=== PATIENT | female | born 1980 | race Caucasian/White ===

== ENCOUNTER → 2018-08-31 | Outpatient (CLI) | payer OTHER ==
[~2018-08-31] MED LIST: ALPR1 PO; BUSP10 PO; CRUTCH2 USE; CYCL10 PO; ESCI20 PO; FLUO20 PO; GABA300 PO; HYDACE5 PO; HYDHCL25 PO; IBUP800 PO; LAMO100 PO; LEVFLO250 PO; Naprosyn500 MG PO; OMEP20ER; PRAV20; SAPHRIS; SERT100 PO
== END | disposition home or self-care (01) ==
LOC: LAB EV 14:59 → LAB SHORT 14:59
DX: N39.0 Urinary tract infection, site not specified (principal)
CPT/HCPCS: 87086

== ENCOUNTER 2023-11-23 18:51 | Observation (INO) | payer BC ==
[~2023-11-23] VITALS: Ht 160 cm; Wt 81.7 kg
[2023-11-23 19:38] LABS: Source, Urine Clean Catch
[2023-11-23 19:42] LABS: Appearance, Urine Clear (Clear); Bilirubin, Urine Neg (Neg); Blood, Urine Neg (Neg); Glucose Qualitative, Urine Neg (Neg); Ketones, Urine Neg (Neg); Leukocyte Esterase, Urine Neg (Neg); Nitrite, Urine Neg (Neg); Protein, Urine Neg (Neg); Specific Gravity, Urine 1.005 (1.003-1.022); Urobilinogen, Urine NORM (Normal)
[2023-11-23 19:44] LABS: Color, Urine Pale Yellow (P-Yellow)
[2023-11-23] MEDS ORDERED: LAMICTAL200 MG PO (19:44)
[2023-11-23] MEDS ORDERED: TRAZ150T57 PO (19:45)
[2023-11-23] MEDS ORDERED: VRAYLAR1.5 MG PO (19:45)
[2023-11-23] MEDS ORDERED: BUPROPION XL150 M1 PO (19:45)
[2023-11-23] MEDS ORDERED: ZOLOFT50 MG PO (19:47)
[2023-11-23] MEDS ORDERED: NEURONTIN40010 PO (19:47)
[2023-11-23] MEDS ORDERED: QUETIAPINE FUMA25 MG PO (19:48)
[2023-11-23] MEDS ORDERED: PROG100 PO (19:48)
[2023-11-23 19:53] LABS: BASOPHILS ABSOLUTE AUTO 0.07 K/mm3 (0.00-0.23); BASOPHILS PERCENT AUTO 1 % (0-2); EOSINOPHILS ABSOLUTE AUTO 0.08 K/mm3 (0.00-0.68); EOSINOPHILS PERCENT AUTO 1 % (0-6); Hematocrit 39.2 % (33.0-51.0); Hemoglobin 13.4 g/dL (11.5-16.0); IMMATURE GRAN ABSOLUTE AUTO 0.03 K/mm3 (0.00-0.10); IMMATURE GRAN PERCENT AUTO 0 % (0-1); LYMPHOCYTES ABSOLUTE AUTO 3.51 K/mm3 (0.84-5.20); LYMPHOCYTES PERCENT AUTO 29 % (21-46); MONOCYTES ABSOLUTE AUTO 0.44 K/mm3 (0.16-1.47); MONOCYTES PERCENT AUTO 4 % (4-13); Mean Corpuscular HGB 30.5 pg (26.0-34.0); Mean Corpuscular HGB Conc 34.2 g/dL (31.5-36.5); Mean Corpuscular Volume 89 fL (80-100); Mean Platelet Volume 9.4 fL (9.1-12.4); NEUTROPHILS ABSOLUTE AUTO 8.06 K/mm3 (1.96-9.15); NEUTROPHILS PERCENT AUTO 66 % (41-73); Platelet Count 242 K/mm3 (150-400); RDW Coefficient Variation 12.2 % (11.7-14.2); RDW Standard Deviation 39.8 fL (35.1-46.3); White Blood Cell Count 12.19 K/mm3 (4.00-11.30)
[2023-11-23 19:55] LABS: U Amphetamine Screen Not Detected; U Barbituate Screen Not Detected; U Benzodiazapine Screen Not Detected; U Buprenorphine Screen Not Detected; U Cannabinoids Screen Not Detected; U Cocaine Screen Not Detected; U Methadone Screen Not Detected; U Methamphetamine Screen Not Detected; U Opiates Screen Not Detected; U Oxycodone Screen Not Detected; U Phencyclidine Screen Not Detected
[2023-11-23 20:12] LABS: Alanine Aminotransfer (ALT/SGP 38 U/L (12-78); Albumin/Globulin Ratio 1.2 (0.8-1.8); Alk Phos 46 U/L (50-136); Anion Gap 11 mmol/L (3-11); Aspartate Aminotrans (AST/SGOT 27 U/L (12-37); Bilirubin, Total 0.2 mg/dL (0.1-1.0); Blood Urea Nitrogen 16 mg/dL (8-24); Bun/Creatinine Ratio 21.7 (12.0-20.0); CO2, Blood 22 mmol/L (21-32); Calcium, Blood 8.6 mg/dL (8.5-10.1); Chloride, Blood 109 mmol/L (98-108); Creatinine, Blood 0.74 mg/dL (0.40-1.00); Ethanol (Alcohol), Blood, Med 5 mg/dL; Globulin, Blood 3.3 g/dL (2.2-4.0); Glomerular Filtration Rate 104 (60-); Glucose, Blood 103 mg/dL (70-99); Potassium, Blood 4.2 mmol/L (3.5-5.5); Salicylate <1.7 mg/dL (2.8-20.0); Sodium, Blood 138 mmol/L (136-145); Total Protein, Blood 7.3 g/dL (6.4-8.2)
[2023-11-23 20:13] LABS: Acetaminophen, Random <2.0 ug/mL (10.0-30.0)
[2023-11-23] MEDS ORDERED: LamoTRIgine 25 MG Tab PO ONE (20:50)
[2023-11-23] MEDS ORDERED: LamoTRIgine 100 MG Tab PO ONE (20:50)
[2023-11-23] MEDS ORDERED: TraZODone HCl 50 MG Tab PO SCH (21:00)
[2023-11-24] MEDS ORDERED: Droperidol 5 mg/2 ml Vial IV ONE (00:35)
[2023-11-24] MEDS ORDERED: DiphenhydrAMINE HCl 50 MG Cap PO ONE (00:50)
[2023-11-24] MEDS ORDERED: Gabapentin 300 MG Cap PO ONE (00:50)
[2023-11-24] MEDS ORDERED: Gabapentin 400 MG Cap PO ONE (01:10)
[2023-11-24] MEDS ORDERED: Gabapentin 400 MG Cap PO SCH (09:00)
[2023-11-24 10:16] VITALS: BP 125/88
== END 2023-11-24 11:01 | disposition home or self-care (01) ==
LOC: ER 18:51 → EOR 18:52
PROVIDERS: Nurse Practitioner; ADMIT Emergency Medicine
DX: F33.2 Major depressive disorder, recurrent severe without psychotic features (principal); F43.23 Adjustment disorder with mixed anxiety and depressed mood; Z79.899 Other long term (current) drug therapy
CPT/HCPCS: 80053; 81003; 81025; 85025; 93005; 93010; 99285-25; A9270; G0378; G0480